=== PATIENT | female | born 1960 | race Caucasian/White ===

== ENCOUNTER → 2017-05-07 | Outpatient (CLI) | payer OTHER ==
[~2017-05-07] MED LIST: FLUO20TA2 PO; LORA-630 PO; NORE-142 PO
--- NOTE | 2017-05-07 12:47 | EKG ---
FACILITY: [facility] [place] PATIENT NAME: JUANJO RAJPUT : [id number] MR: [id number]: [id number] EXAM DATE: ORDERING PHYSICIAN: CARLENE CHAVEZ TECHNOLOGIST: Test Reason : Blood Pressure : / mmHG Vent. Rate : 062 BPM Atrial Rate : 062 BPM P-R Int : 144 ms QRS Dur : 084 ms QT Int : 432 ms P-R-T Axes : 056 080 076 degrees QTc Int : 438 ms Normal sinus rhythm Normal ECG No previous ECGs available Confirmed by ROXY GIBBONS ([id number]) on 05/08/2017 6:36:15 AM Referred By: Confirmed By:ROXY GIBBONS
== END ==
LOC: RESP 12:34
PROVIDERS: ATTEND Anesthesiology
DX: Z01.810 Encounter for preprocedural cardiovascular examination (principal); S83.242A Other tear of medial meniscus, current injury, left knee, initial encounter; M94.262 Chondromalacia, left knee
CPT/HCPCS: 93005